=== PATIENT | male | born 1980 | race Asian ===

== ENCOUNTER 2021-12-31 08:41 | Outpatient (CLI) | payer BC | END 2021-12-31 08:42 | disposition home or self-care (01) | LOC: CSHLAB 08:41 | PROVIDERS: ATTEND Surgery | DX: Z20.822 Contact with and (suspected) exposure to COVID-19 (principal) | CPT/HCPCS: 87811 ==

== ENCOUNTER 2022-01-05 08:34 | Outpatient (CLI) | payer BC | END 2022-01-05 08:35 | disposition home or self-care (01) | LOC: CSHRAD 08:34 | PROVIDERS: ATTEND Surgery | DX: K21.9 Gastro-esophageal reflux disease without esophagitis (principal); K44.9 Diaphragmatic hernia without obstruction or gangrene; K22.89 Other specified disease of esophagus | CPT/HCPCS: 74246 ==